=== PATIENT | female | born 1955 | race Caucasian/White ===

== ENCOUNTER 2016-09-24 07:19 | Day surgery (SDC) | payer OTHER ==
--- NOTE | ~2016-09-24 | EGD ---
EGD REPORT [facility] [address] [place] [address] NAME: LEDA MENESES : 55 STATUS : REG [facility]#: [id number] AGE: 61 ADM/REG DATE : 09/24/16 MR#: [id number] REPORT SERV DATE: 09/24/16 DICTATED BY: MARIAH POLANCO DATE: 09/24/16 REPORT STATUS : Draft TRANSCRIBED BY: [facility] DATE: 09/24/16 End[facility] Center Patient Name: Leda Meneses Date of : 1955 Attending MD: MARIAH POLANCO, Procedure Date No Time: 09/24/2016 Procedure: Lower EUS Indications: Rectal deformity found on endoscopy; subepithelial tumor versus extrinsic compression Referring MD: LUCHO RITTER Medicines: Monitored Anesthesia Care Complications: No immediate complications. Estimated blood loss: None. Procedure: Pre-Anesthesia Assessment: - ASA Grade Assessment: III - A patient with severe systemic disease. After obtaining informed consent, the endoscope was passed under direct vision. Throughout the procedure, the patient's blood pressure, pulse, and oxygen saturations were monitored continuously. The [facility] [id number] was introduced through the anus and advanced to the rectosigmoid junction for ultrasound. The Endoscope was introduced through the anus and advanced to the rectosigmoid junction for ultrasound. Findings: Endoscopic Finding : Anal papilla(e) were hypertrophied (suspected). These were enlarged and appeared lobulatedBiopsies were taken with a cold forceps for histology. Verification of patient identification for the specimen was done. Estimated blood loss was minimal. Internal hemorrhoids were found during retroflexion and were Grade II (internal hemorrhoids that prolapse but reduce spontaneously). Endosonographic Finding : Local wall thickening was visualized endosonographically in the anal canal. This was only involving the mucosa and corresponded to the area of suspected hypertrophied anal papillae. There was no submucosal component and this was not vascular by doppler. The site of thickening was non-circumferential. This finding appeared to be primarily due to increased thickness of the superficial anal tissues (likely hypertrophied anal papillae. The rectum was normal. The perirectal space was normal. Impression: - Anal papilla(e) were hypertrophied. Biopsied. - Internal hemorrhoids. EGD REPORT [place] [id number] [facility] [place]. [address] NAME: LEDA MENESES : 55 STATUS : REG [facility] [place] PAT#: [id number] AGE: 61 ADM/REG DATE : 09/24/16 MR#: [id number] REPORT SERV DATE: 09/24/16 DICTATED BY: MARIAH POLANCO DATE: 09/24/16 REPORT STATUS : Draft TRANSCRIBED BY: [facility] DATE: 09/24/16 - Local wall thickening was visualized endosonographically in the anal canal. This was due to increased thickness of the superficial anal tissues. This appears to be prominent hypertrophied anal papilla. - Endosonographic images of the rectum were unremarkable. - Endosonographic images of the perirectal space were unremarkable. Recommendation: - Await path results. - Return to referring physician. - Continue present medications. Procedure Code(s): --- Professional --- 61696, Sigmoidoscopy, flexible; with endoscopic ultrasound examination 05326, Sigmoidoscopy, flexible; with biopsy, single or multiple Diagnosis Code(s): --- Professional --- K62.89, Other specified diseases of anus and rectum K64.1, Second degree hemorrhoids CPT copyright 2013 [employer]. All rights reserved. The codes documented in this report are preliminary and upon clinical nursing manager review may be revised to meet current compliance requirements. MARIAH POLANCO, 09/24/2016 9:19 AM Number of Addenda: 0 Note Initiated On: 09/24/2016 8:46 AM Scope Withdrawal Time 0 hours 0 minutes 0 seconds [address] [place] [address]
[~2016-09-24 07:19] MED LIST: A; ALLEGRA180 PO; ASAB PO; LISINOPRIL40 MG PO; MULTI-VIT HP PO; MULTIVIT/MIN PO; PCET PO; PLAVIX PO; PRAVAC PO
== END 2016-09-24 23:59 | disposition home or self-care (01) ==
LOC: DMU 07:19
PROVIDERS: Internal Medicine Gastroenterology
PROC: 0DBQ8ZX Excision of Anus, Via Natural or Artificial Opening Endoscopic, Diagnostic (ICD-10-PCS; 2016-09-24)
PROC: 0DJD8ZZ Inspection of Lower Intestinal Tract, Via Natural or Artificial Opening Endoscopic (ICD-10-PCS; principal; 2016-09-24 08:30)
PROC: BD47ZZZ Ultrasonography of Gastrointestinal Tract (ICD-10-PCS; 2016-09-24 08:30)
DX: D12.9 Benign neoplasm of anus and anal canal (principal); K64.1 Second degree hemorrhoids; I10 Essential (primary) hypertension; I25.10 Atherosclerotic heart disease of native coronary artery without angina pectoris; I25.2 Old myocardial infarction; E78.00 Pure hypercholesterolemia, unspecified; M19.90 Unspecified osteoarthritis, unspecified site; Z85.038 Personal history of other malignant neoplasm of large intestine; Z90.49 Acquired absence of other specified parts of digestive tract; Z79.82 Long term (current) use of aspirin; Z79.02 Long term (current) use of antithrombotics/antiplatelets; Z79.899 Other long term (current) drug therapy; Z86.718 Personal history of other venous thrombosis and embolism; Z96.652 Presence of left artificial knee joint; Z90.710 Acquired absence of both cervix and uterus; Z98.890 Other specified postprocedural states
CPT/HCPCS: 76872; 88305; C1725